=== PATIENT | male | born 1980 | race Caucasian/White ===

== ENCOUNTER 2019-07-01 20:51 | Emergency (ER) | payer OTHER ==
[2019-07-01 20:59] VITALS: BP 126/88; PULSE 67; TEMP 98.7; BMI 25.7
[2019-07-01] MEDS ORDERED: IBUPROFEN 600 MG TABLET (FP) PO ONE ×2 (21:01→21:04)
[2019-07-01] MEDS ORDERED: DIPHTH,PERTUSS(ACELL),TET 0.5 ML DISP.SYRIN IM ONE ×2 (21:01→21:04)
--- NOTE | 2019-07-01 21:07 | PDOC ---
Documentation entered by Bruno Torres SCRIBE, acting as scribe for Petty Forrest MD. Petty Forrest MD: This documentation has been prepared by the Melissa melo Xhesika, SCRIBE, under my direction and personally reviewed by me in its entirety. I confirm that the documentation accurately reflects all work, treatment, procedures, and medical decision making performed by me. History of Present Illness - General Chief Complaint: Pain, Acute Stated Complaint: FELL THROUGH DECK,KNEE PAIN History Source: Patient Exam Limitations: No Limitations - History of Present Illness Initial Comments: 07/01/19 20:56 The patient is a 38 year old male, with no significant PMH of who presents to the emergency department with L leg abrasion. Patient states he was working on a deck, fell through the deck and hyperextended his knee. Patient denies hitting head or LOC. Patient notes his last tetanus was 9 years ago. PAST SURGICAL HISTORY: no significant history FAMILY HISTORY: no pertinent history SOCIAL HISTORY: Pt lives with family and is employed. occasional marijuana use. MEDICATIONS: reviewed ALLERGIES: As per nursing notes 07/01/19 21:05 Assessment and plan: This is a 38-year-old male who said that he was working when he fell through a deck and hyperextended his knee. Patient is complaining of pain in the anterior as well as the posterior knee and he said it feels unstable when he ambulates. Patient also is noted to have a large linear very superficial scratch-type abrasion to his leg extending from above the knee to the mid calf area. There is no active bleeding of the scrape. Patient treated the knee which is negative for any acute pathology. X-ray was normal. Superficial abrasion cleaned and antibiotic ointment applied. Patient given crutches for ambulation and orthopedic follow-up. Given the extent of the superficial abrasion I also started him on a short course of antibiotics Past History - Past Medical History Allergies/Adverse Reactions: Allergies Allergy/AdvReac Type Severity Reaction Status Date / Time Penicillins Allergy Verified 07/01/19 20:52 Home Medications: Ambulatory Orders NK [No Known Home Medication] 09/01/15 - Suicide/Smoking/Psychosocial Hx Smoking History: Current every day smoker Number of Cigarettes Smoked Daily: 20 'Breaking Loose' booklet given: 09/01/15 Hx Alcohol Use: No Drug/Substance Use Hx: Yes (OCCASIONAL MARIJUANA) Substance Use Type: None Review of Systems - Review of Systems Able to Perform ROS?: Yes Comments:: 07/01/19 20:56 General: No fevers or chills, no weakness, no weight loss HEENT: No change in vision. No sore throat,. No ear pain CardioVascular: No chest pain or shortness of breath Respiratory:No cough, or wheezing. Gastrointestinal: no nausea, vomiting, diarrhea or constipation, No rectal bleeding Genitourinary: No dysuria, hematuria, or frequency Musculoskeletal: No joint or muscle pain or swelling. (+) L leg abrasion Neurologic: No headache, vertigo, dizziness or loss of consciousness Psychiatric: nor depression Skin: No rashes or easy bruising Endocrine: no increased thirst or abnormal weight change Allergic: no skin or latex allergy All other systems reviewed and normal *Physical Exam - Vital Signs Last Vital Signs Temp Pulse Resp BP Pulse Ox 98.7 F 67 16 126/88 96 07/01/19 20:52 07/01/19 20:52 07/01/19 20:52 07/01/19 20:52 07/01/19 20:52 - Physical Exam Comments: 07/01/19 20:57 GENERAL: The patient is awake, alert, and fully oriented, in no acute distress. HEAD: Normal with no signs of trauma. EYES: Pupils equal, round and reactive to light, extraocular movements intact, sclera anicteric, conjunctiva clear. EXTREMITIES: (+) Long linear superficial abrasion that extends from above the knee to the calf. (+) L Knee TTP over the patella NEUROLOGICAL: Normal speech, normal gait. PSYCH: Normal mood, normal affect. SKIN: Warm, Dry, normal turgor, no rashes or lesions noted. ED Treatment Course - RADIOLOGY Radiology Studies Ordered: Category Date Time Status KNEE 2 POS-LEFT [RAD] Stat Radiology 07/01/19 21:00 Ordered PATELLA- LEFT [RAD] Stat Radiology 07/01/19 21:01 Ordered *DC/Admit/Observation/Transfer Diagnosis at time of Disposition: Right knee sprain Leg abrasion Qualifiers: Encounter type: initial encounter Laterality: left Qualified Code(s): S80.812A - Abrasion, left lower leg, initial encounter - Discharge Dispostion Disposition: HOME Condition at time of disposition: Stable Decision to Admit order: No - Referrals Referrals: Mikey Gonzalez MD [Staff Physician] - - Patient Instructions Additional Instructions: Take Tylenol or Motrin as needed for the pain. Take Bactrim 1 tablet twice a day for 5 days to prevent infection. Follow-up with an orthopedist. Return to the emergency department immediately with ANY new, persistent or worsening symptoms. Continue any medications as previously prescribed by your physician. You should follow up with your primary doctor as soon as possible regarding today's emergency department visit. . Please make sure your doctor reviews the results of your emergency evaluation. Thank you for coming to the Emergency Department today for your care. It was a pleasure to see you today. Please note that your evaluation is INCOMPLETE until you follow-up with your doctor. - Post Discharge Activity
[2019-07-01] MEDS ORDERED: SULFAMETHOXAZOLE/TRIMETHOPRIM 800MG/160MG D.S. TABLET PO STA (21:29)
[2019-07-01] MEDS ORDERED: SULFAMETHOXAZOLE/TRIMETHOPRIM 800MG/160MG D.S. TABLET ONE (21:35)
== END 2019-07-01 21:47 | disposition home or self-care (01) ==
LOC: FER 20:51
PROC: 3E0234Z Introduction of Serum, Toxoid and Vaccine into Muscle, Percutaneous Approach (ICD-10-PCS; principal; 2019-07-01)
DX: S83.91XA Sprain of unspecified site of right knee, initial encounter (principal); W13.8XXA Fall from, out of or through other building or structure, initial encounter; Y93.89 Activity, other specified; Y92.89 Other specified places as the place of occurrence of the external cause; Y99.0 Civilian activity done for income or pay
CPT/HCPCS: 73560-TC-LT-FY; 90715; 99281-25

== ENCOUNTER 2025-03-07 10:42 | Emergency (ER) | payer OTHER ==
[2025-03-07 10:56] VITALS: BP 119/80; PULSE 102; RESP 18; TEMP 97.3; BMI 23.3
[2025-03-07] MEDS ORDERED: DOXYCYCLINE HYCLATE 100 MG CAPSULE PO ONE (11:14)
[2025-03-07] MEDS ORDERED: CLINDAMYCIN HCL 150 MG CAPSULE (FP) ONE (11:14)
[2025-03-07] MEDS ORDERED: ACETAMINOPHEN 500 MG TABLET (FP) ONE (11:26)
[2025-03-07] MEDS: DOXYCYCLINE HYCLATE 100 MG CAPSULE PO ONE (11:30)
[2025-03-07] MEDS: CLINDAMYCIN HCL 150 MG CAPSULE (FP) PO ONE (11:30)
[2025-03-07] MEDS: ACETAMINOPHEN 500 MG TABLET (FP) PO ONE (11:30)
== END 2025-03-07 11:40 | disposition home or self-care (01) ==
LOC: FER 10:42
DX: S51.032A Puncture wound without foreign body of left elbow, initial encounter (principal); W54.0XXA Bitten by dog, initial encounter
CPT/HCPCS: 99283-25